=== PATIENT | female | born 1980 | race Caucasian/White ===

== ENCOUNTER → 2018-05-03 18:37 | Outpatient (CLI) | payer BC, SELFPAY | PROVIDERS: Visit Provider Nurse Practitioner Family | DX: J02.9 Acute pharyngitis, unspecified (principal) ==

== ENCOUNTER → 2019-02-14 12:56 | Outpatient (CLI) | payer BC, SELFPAY ==
--- NOTE | 2019-02-14 13:04 | US_ITS ---
PROCEDURE: US EXTREMITY RT LIMITED CLINICAL INDICATION: RT UPPER ARM MASS Palpable abnormality in the upper arm COMPARISON: No exams were available for comparison FINDINGS: Ultrasound performed of the arm demonstrates a subcutaneous ill-defined area of slight increased echogenicity measuring approximately 1 x 0.5 cm. This does not show increased blood flow and may represent a small lipoma IMPRESSION: Possible small lipoma corresponding to palpable abnormality in the arm Dictated by: Marin Perez MD 02/14/2019 13:42 Electronically signed by Marin Perez MD in [place] 02/14/2019 13:42
== END ==
PROVIDERS: PCP Physician Assistant; Visit Provider Physician Assistant
DX: R22.31 Localized swelling, mass and lump, right upper limb (principal)
CPT/HCPCS: 76882

== ENCOUNTER 2020-03-22 11:00 | Emergency (ER) | payer BC, SELFPAY ==
[2020-03-22 11:00] VITALS: BP 138/93; PULSE 89; RESP 13; TEMP 36.9; O2SAT 100; BMI 21.5
--- NOTE | 2020-03-22 11:06 | ECG_ITS ---
APPROVED REPORT Exam: Resting ECG HR:81 bpm ECG Measurements Heart Rate 81 AXES WI 146 P 63 QRSd 72 QRS -18 QT 388 T 25 QTc 450 Conclusion Normal sinus rhythm Left atrial abnormality Low voltage QRS Late r wave progression Abnormal ECG Electronically signed by : Sebas Miguel, 03/23/2020 19:21:28
--- NOTE | 2020-03-22 11:18 | XR_ITS ---
PROCEDURE: XR CHEST 2V CLINICAL HISTORY: soa COMPARISON: CR CXR CHEST(2 VIEWS-NOT PORTABLE) from 04/08/2016 FINDINGS: The cardiomediastinal silhouette and pulmonary vascularity are within normal limits. The lungs are clear without infiltrates, suspicious nodules, or pleural effusions. No acute bony abnormalities. IMPRESSION: No acute findings. Dictated by: Marin Perez MD 03/22/2020 11:45 Marin Perez MD in [place] 03/22/2020 11:45
--- NOTE | 2020-03-22 11:19 | HMH.EDGENADL ---
ED Disposition Clinical Impression: Dyspnea Qualifiers: Dyspnea type: unspecified Qualified Code(s): R06.00 - Dyspnea, unspecified Disposition: Home, Self-Care Condition on Discharge: Good Instructions: DI for Shortness of Breath Additional Instructions: Call back to the emergency department in 24-48 hrs to obtain your COVID-19 test result. Quarantine yourself until you obtain your result. Additional instructions for SHORTNESS OF BREATH: See your physician as soon as possible for further evaluation. Return immediately if worsening shortness of breath or if vomiting, chest pain, fever, coughing of blood, or passing out. Referrals: Orlando Hudson MD [Primary Care Provider] - - Critical Care Critical Care Time: No Attestation: On 03/22/20, the high probability of a clinically significant, sudden or life threatening deterioration of the following system(s) required my full and direct attention, intervention and personal management. The time I documented below is in addition to time spent performing reported procedures but includes the following listed in this critical care notation. Medical Decision Making - Felipe Inquiry Pt receiving controlled substance: No Vital Signs: 03/22/20 11:00 03/22/20 11:54 Temperature 98.4 F Temperature Source Oral Pulse Rate [Left Radial] 89 75 Respiratory Rate 13 Blood Pressure [Right Arm] 138/93 H 131/79 Blood Pressure Mean [Right Arm] 108 96 Blood Pressure Source [Right Arm] Automatic Cuff Automatic Cuff Blood Pressure Position [Right Arm] Sitting Sitting 02 Sat by Pulse Oximetry 100 98 Oxygen Delivery Method Room Air Room Air - Lab Data Lab Results 03/22/20 11:18: WBC 7.9, RBC 4.98, Hgb 15.5, Hct 45.5, MCV 91.3, MCH 31.1, MCHC 34.1, RDW 12.8, Plt Count 233, MPV 8.9, Neut % (Auto) 65.1, Lymph % (Auto) 25.5, [place] % (Auto) 6.3, Eos % (Auto) 2.5, Baso % (Auto) 0.6, Neut # (Auto) 5.1, Lymph # (Auto) 2.0, [place] # (Auto) 0.5, Eos # (Auto) 0.2, Baso # (Auto) 0.1 03/22/20 11:18: Sodium 138, Potassium 3.8, Chloride 104, Carbon Dioxide 25, Anion Gap 12.8, BUN 13, Creatinine 0.80, Estimated Creat Clear 81, Estimated GFR 80, Est GFR ( Amer) 97, Glucose 105 H, Calcium 9.5, Total Bilirubin 1.1, AST 28, ALT 13, Alkaline Phosphatase 64, Troponin I < 0.01, Total Protein 8.3 H, Albumin 4.8, Globulin 3.5 H, Albumin/Globulin Ratio 1.4 03/22/20 11:18: D-Dimer 0.64 Result diagrams: 03/22/20 11:18 03/22/20 11:18 Orders (Tests/Meds): ORDERS Category Date Time Status Troponin I Q3H Lab 03/22/20 14:30 Ordered Troponin I Q3H Lab 03/22/20 17:30 Ordered - Radiology Data #1 Image(s): Chest Image Reviewed: Yes I reviewed the patient's radiology image, Yes I have reviewed radiologist's interpretation Preliminary Findings: Normal/NAD - ECG Data Tracing #1 EKG interpreted by Wilfrido García MD: Rhythm: sinus Rate: 81 [place]: Left Ectopy: none Conduction: normal ST Segment Changes: none T Wave Changes: none Q Waves: none Poor R wave progression No prior EKGs available for comparison. Medical Decision Narrative: PULMONARY EMBOLISM RULE-OUT CRITERIA: 1. Age > 49? No 2. Pulse greater than 99/min? No 3. Room air pulse ox <95%? No 4. Hemoptysis? No 5. On estrogen? No 6. Prior diagnosis of DVT or PE? No 7. Surgery or trauma requiring endotracheal intubation or hospitalization in past 4 wks? No 8. Unilateral leg swelling? No The patient is low risk and the PERC score is 0, however given her shortness of breath and pleuritic chest pain a D-dimer was also ordered. 12:13 PM: Discussed results. Work-up negative. Patient would also like to be tested for Covid. General Adult HPI - General Chief complaint: Shortness of Breath/Dyspnea Stated complaint: SOA Time Seen by Provider: 03/22/20 11:19 Mode of Arrival: Ambulatory Limitations: No Limitations Description of Symptoms (Recalled from ER Triage Doc. by RN): Pt states that last night she
--- NOTE | 2020-03-22 11:27 | PC.NURSE ---
Pt taken to xray
--- NOTE | 2020-03-22 11:29 | PC.NURSE ---
Pt back from xray
[2020-03-22 11:43] LABS: Chloride 104 mmol/L (98-107); Sodium 138 mmol/L (136-145)
[2020-03-22 11:44] LABS: Potassium 3.8 mmoL/L (3.5-5.1)
[2020-03-22 11:46] LABS: Alanine Aminotransferase 13 U/L (12-78); Albumin Level 4.8 g/dl (3.5-5.0); Albumin/Globulin Ratio 1.4 (1.1-1.8); Alkaline Phosphatase 64 U/L (38-126); Anion Gap 12.8 mEq/L (5-15); Aspartate Amino Transferase 28 U/L (14-36); Bilirubin,Total 1.1 mg/dl (0.2-1.3); Blood Urea Nitrogen 13 mg/dl (7-17); Calcium 9.5 mg/dl (8.4-10.2); Carbon Dioxide 25 mmol/L (22.0-30.0); Creatinine Clearance Estimated 81 mL/min (50-200); Estimated Glomerular Filt Rate 80 ml/min (>60); GFR (African American) 97 ML/MIN (>60); Globulin 3.5 g/dL (1.3-3.2); Glucose 105 mg/dl (74-100); Total Protein,Serum 8.3 g/dl (6.3-8.2)
[2020-03-22 11:48] LABS: Basophils # 0.1 K/mm3 (0-0.2); Basophils % 0.6 % (0.1-2.0); Eosinophils # 0.2 K/mm3 (0.0-0.4); Eosinophils % 2.5 % (0.1-12.0); Hematocrit 45.5 % (37.0-47.0); Hemoglobin 15.5 g/dL (12.2-16.2); Lymphocytes % 25.5 % (10-50); Mean Corpuscular HGB Conc 34.1 g/dL (31.8-35.4); Mean Corpuscular Hemoglobin 31.1 pg (27.0-31.2); Mean Corpuscular Volume 91.3 fl (81-99); Mean Platelet Volume 8.9 fl (7.4-10.4); Monocytes # 0.5 K/mm3 (0.1-1.0); Monocytes % 6.3 % (1.7-9.3); Neutrophils # 5.1 K/mm3 (1.8-7.8); Neutrophils % 65.1 % (37.0-80.0); Platelet Count 233 K/mm3 (142-424); Red Blood Count 4.98 M/mm3 (4.20-5.40); Red Cell Distribution Width 12.8 % (11.5-17.5); White Blood Count 7.9 K/mm3 (4.8-10.8)
[2020-03-22 11:51] LABS: D-Dimer 0.64 ug/mL (0.15-8.0)
[2020-03-22 11:54] VITALS: BP 131/79; PULSE 75; O2SAT 98
[2020-03-22 12:06] LABS: Troponin I < 0.01 ng/ml (0.00-0.034)
[2020-03-22 12:33] VITALS: BP 131/84; PULSE 69; RESP 14; TEMP 36.9; O2SAT 99
== END 2020-03-22 12:34 | disposition home or self-care (01) ==
PROVIDERS: Emergency Provider Emergency Medicine; PCP Family Medicine
DX: R06.00 Dyspnea, unspecified (principal); R42 Dizziness and giddiness; F17.210 Nicotine dependence, cigarettes, uncomplicated; Z88.8 Allergy status to other drugs, medicaments and biological substances; Z20.828 Contact with and (suspected) exposure to other viral communicable diseases
CPT/HCPCS: 71046; 80053; 84484; 85025; 85378; 93005; 99283; U0003

== ENCOUNTER → 2020-05-12 09:15 | Outpatient (CLI) | payer BC, SELFPAY | PROVIDERS: PCP Family Medicine; Visit Provider Physician Assistant | DX: Z11.52 Encounter for screening for COVID-19 (principal) | CPT/HCPCS: U0003 ==

== ENCOUNTER 2021-03-26 10:08 | Emergency (ER) | payer BC, SELFPAY ==
[2021-03-26 11:19] VITALS: BP 141/86; PULSE 85; RESP 18; TEMP 36.7; O2SAT 99; BMI 22.3
--- NOTE | 2021-03-26 11:35 | HMH.EDUTC ---
[facility] – [place] Disposition Clinical Impression: Nasal congestion Disposition: Home, Self-Care Condition on Discharge: Good Instructions: DI for Nasal Congestion, Methylprednisolone, Fluticasone Nasal [place] Additional Instructions: *Monitor Temp, Over the counter Motrin or Tylenol as directed/as needed Tylenol every 4 hours and Motrin every 6 hours (as long as your family doctor has told you that you can take it) for fever or pain. and straight to ER if unable to lower temp less than 101.0 after medication given *Warm salt water gargles may help to soothe the throat *Throat Lozenges *Warm fluids like tea with honey may help to soothe the throat *Sleep elevated *Humidifier/Vaporizer *Flonase 2 sprays in each nostril daily but be aware that it may take 2-3 days before you notice improvement Follow up IMMEDIATELY for new or worsening symptoms or no Noticeable improvement over the next 48-72 hours. 911 for difficulty breathing or swallowing You were tested for today for COVID19 your test result should be back in the next 24-48 hours, you may call to the [facility] to see if your test results are back in the next 48 hours [phone] [facility] hours are 9am-9pm You was given a handout with instructions for Self Quarantine and Self isolation for while you wait on test results and what to do if they are positive If you are positive the Health Dept will be contacting you also Make sure to take your Vitamins Vit. C Vit D and Zinc if you can take them Prescriptions: Fluticasone Propionate [Flonase 50mcg nasal spray 16gm] 1 spr NS DAILY #1 each Transmission Status: Pending to [facility] methylPREDNISolone [Medrol 4mg tab] 4 mg PO DIRECTED #21 tab Transmission Status: Pending to [facility] Referrals: Orlando Hudson MD [Primary Care Provider] - As needed Forms: Work/School Release Time of Disposition: 11:48 Medical Decision Making - Felipe Inquiry Pt receiving controlled substance: No Felipe was queried for this patient: No Vital Signs: 03/26/21 11:19 Temperature 98.1 F Temperature Source Oral Pulse Rate [Left] 85 Respiratory Rate 18 Blood Pressure [Right Arm] 141/86 H Blood Pressure Mean [Right Arm] 104 02 Sat by Pulse Oximetry 99 Orders (Tests/Meds): ORDERS Category Date Time Status Covid-19 Nasal PCR ([facility]) Routine Lab 03/26/21 11:14 Received [facility] [place] HPI - General Stated complaint: congestion, body aches, weakness Time Seen by Provider: 03/26/21 11:35 Mode of Arrival: Ambulatory Source of Information: Patient Limitations: No Limitations Description of Symptoms (Recalled from Triage Doc. by RN): pt c/o sinus congestion, body aches and ears aching. pt states it all came on suddenly. HEENT Symptoms (Recalled from RN notes): Yes (sinus congestion and ears ache) Resp Symptoms (Recalled from RN notes): No Skin Symptoms (Recalled from RN notes): No MS Symptoms (Recalled from RN notes): No Functional Status (Recalled from RN notes): wnl - History of Present Illness Provider Complaint: Patient states that she woke up yesterday having sinus congestion feeling of fullness in her ears and body aches and feeling achy and tired States that she took her booster shot last week States that today she was still feeling bad so she came in to get tested for COVID - Related Data Home Medications Medication Instructions Recorded Confirmed Fluticasone Propionate [Flonase 2 spray INTRANASAL DAILY 03/22/20 03/22/20 Allergy Relief NS] Previous Rx's Medication Instructions Recorded Fluticasone Propionate [Flonase 1 spr NS DAILY #1 each 03/26/21 50mcg nasal spray 16gm] methylPREDNISolone [Medrol 4mg 4 mg PO DIRECTED #21 tab 03/26/21 tab] Allergies Allergy/AdvReac Type Severity Reaction Status Date / Time Butorphanol Allergy Unknown Uncoded 05/03/18 12:25 From Codeine Sulfate Allergy Unknown Uncoded 05/03/18 12:25 Hydrocodone Allergy Unknown Uncoded 05/03/18 12:25 Metoclopramide Allergy Unkno
[2021-03-26 11:55] VITALS: BP 141/86; PULSE 85; RESP 18; TEMP 36.7
== END 2021-03-26 11:56 | disposition home or self-care (01) ==
PROVIDERS: Emergency Provider Nurse Practitioner; PCP Family Medicine
DX: U07.1 COVID-19 (principal); F17.210 Nicotine dependence, cigarettes, uncomplicated
CPT/HCPCS: 99202; C9803; G0463; U0003; U0005

== ENCOUNTER 2021-08-19 14:52 | Emergency (ER) | payer BC, SELFPAY ==
[2021-08-19 15:22] VITALS: BP 131/88; PULSE 92; RESP 18; TEMP 36.9; O2SAT 99; BMI 21.9
--- NOTE | 2021-08-19 15:26 | HMH.EDUTC ---
[facility] [place] Clinical Impression: Viral syndrome Disposition: Home, Self-Care Condition on Discharge: Good Instructions: DI for Viral Syndrome Additional Instructions: Drink plenty of fluids. Take tylenol or ibuprofen for pain or fever. Take the medications as directed. Follow up with your regular doctor. GO TO THE ER FOR ANY WORSENING SYMPTOMS Take the zofran for nausea. Prescriptions: Ondansetron [Zofran 4mg ODT] 4 mg PO Q8HP PRN #20 tab PRN Reason: Nausea Transmission Status: Pending to [facility] Referrals: Nayely Delgado PA [Primary Care Provider] - Forms: Work/School Release Time of Disposition: 16:24 Medical Decision Making - Medical Records Medical records reviewed: No: I reviewed the patient's medical records. - Felipe Inquiry Pt receiving controlled substance: No Vital Signs: 08/19/21 15:22 Temperature 98.4 F Temperature Source Oral Pulse Rate [Left] 92 H Respiratory Rate 18 Blood Pressure [Right Arm] 131/88 Blood Pressure Mean [Right Arm] 102 02 Sat by Pulse Oximetry 99 - Lab Data Lab results reviewed: Yes: I reviewed the patient's lab results. Lab Results 08/19/21 15:21: Urine Color Yellow, Urine Appearance Clear, Urine pH 5.5, Ur Specific [place] 1.020, Urine Protein Negative, Urine Glucose (UA) Negative, Urine Ketones Negative, Urine Blood Negative, Urine Nitrate Negative, Urine Bilirubin Negative, Urine Urobilinogen 0.2, Ur Leukocyte Esterase Negative 08/19/21 15:22: Group A Strep Rapid Negative Orders (Tests/Meds): ORDERS Category Date Time Status Full Resp Panel w/COVID ([facility]) Routine Lab 08/19/21 16:20 Ordered Strep Screen Confirmation Stat Micro 08/19/21 15:22 Received [facility] [place] HPI - General Stated complaint: nausea, chills, bodyaches Time Seen by Provider: 08/19/21 15:26 - History of Present Illness Provider Complaint: She states that she has had n/v off and on for the past 2 weeks. She had diarrhea at first, but that has stopped. She denies abdominal pain but she has had some abdominal tenderness. She does not have her appendix or gall bladder still. - Related Data Home Medications Medication Instructions Recorded Confirmed Fluticasone Propionate [Flonase 2 spray INTRANASAL DAILY 03/22/20 03/22/20 Allergy Relief NS] Previous Rx's Medication Instructions Recorded Fluticasone Propionate [Flonase 1 spr NS DAILY #1 each 03/26/21 50mcg nasal spray 16gm] methylPREDNISolone [Medrol 4mg 4 mg PO DIRECTED #21 tab 03/26/21 tab] Ondansetron [Zofran 4mg ODT] 4 mg PO Q8HP PRN #20 tab 08/19/21 Allergies Allergy/AdvReac Type Severity Reaction Status Date / Time amoxicillin [From Augmentin] Allergy Verified 08/19/21 15:45 butorphanol [From Stadol] Allergy Verified 08/19/21 15:45 clavulanic acid Allergy Verified 08/19/21 15:45 [From Augmentin] metronidazole [From Flagyl] Allergy Verified 08/19/21 15:45 Butorphanol Allergy Unknown Uncoded 05/03/18 12:25 From Codeine Sulfate Allergy Unknown Uncoded 05/03/18 12:25 Hydrocodone Allergy Unknown Uncoded 05/03/18 12:25 Metoclopramide Allergy Unknown Uncoded 05/03/18 12:25 [facility] History - Hepatitis A Screen Attestation statement:: This patient has been screened for Hepatitis A risk factors. I have reviewed the patient's past medical history: Yes Medical History: Denies:: Diabetes Mellitus Type 1, Diabetes Mellitus Type 2 Other Surgeries: Yes: Appendectomy, Cholecystectomy, Diagnostic Lap Amputation: No Fractures: No - Social History Smoking Status: Current every day smoker Tobacco Type: cigarettes # Packs/Day (cigarettes): 1 #Yrs smoked (if former smoker): 15 Alcohol Intake: never Alcohol Intake Frequency:: a few times a month Substance Use Type: denies use Occupational Status: employed ROS Obtained: Yes All systems reviewed & no additional complaints - Constitutional Constitutional: Reports as per HPI, Kelly bautistasSom
[2021-08-19 15:32] LABS: Apearance,Urine Clear (Clear); Color,Urine Yellow (Yellow)
[2021-08-19 15:33] LABS: Bilirubin,Urine Negative (Negative); Blood, Urine Negative (Negative); Glucose,Urine (UA) Negative (Negative); Ketones,Urine Negative (Negative); PH,Urine 5.5 (5.0-8.5); Protein,Urine Negative (Negative); UTC Leukocyte Esterase,Urine Negative (Negative); UTC Nitrate,Urine Negative (Negative); Urobilinogen,Urine 0.2 EU/dl (0.2)
[2021-08-19 15:45] LABS: Strep Scrn Group A (Rapid) Negative (Negative)
[2021-08-19 16:30] LABS: Adenovirus,PCR Not Detected (NotDetected); Bordetella Pertussis Not Detected (NotDetected); Chlamydophila Pneumoniae, PCR Not Detected (NotDetected); Coronavirus 19, PCR Not Detected (NotDetected); Coronavirus 229E Not Detected (NotDetected); Coronavirus NL63 Not Detected (NotDetected); Coronavirus OC43 Not Detected (NotDetected); Coronovirus HKU1,PCR Not Detected (NotDetected); Human Metapneumovirus Not Detected (NotDetected); Influenza A, PCR Not Detected (NotDetected); Influenza AH1, 2009 Not Detected (NotDetected); Influenza AH1, PCR Not Detected (NotDetected); Influenza AH3,PCR Not Detected (NotDetected); Influenza B, PCR Not Detected (NotDetected); Mycoplasma Pneumoniae, PCR Not Detected (NotDetected); Parainfluenza 1, PCR Not Detected (NotDetected); Parainfluenza 2, PCR Not Detected (NotDetected); Parainfluenza 3, PCR Not Detected (NotDetected); Parainfluenza 4, PCR Not Detected (NotDetected); Respiratory Syncytial Virus Not Detected (NotDetected); Rhinovirus/Enterovirus Not Detected (NotDetected)
[2021-08-19 16:43] VITALS: BP 131/88; PULSE 92; RESP 18; TEMP 36.9
[2021-08-19 19:40] LABS: UTC Influenza A Antigen Negative (Negative); UTC Influenza B Antigen Negative (Negative)
== END 2021-08-19 16:44 | disposition home or self-care (01) ==
PROVIDERS: Emergency Provider Nurse Practitioner Family; PCP Physician Assistant
DX: B34.9 Viral infection, unspecified (principal); F17.210 Nicotine dependence, cigarettes, uncomplicated; Z20.822 Contact with and (suspected) exposure to COVID-19; Z79.51 Long term (current) use of inhaled steroids; Z79.52 Long term (current) use of systemic steroids; Z79.899 Other long term (current) drug therapy; Z88.0 Allergy status to penicillin; Z88.1 Allergy status to other antibiotic agents; Z88.3 Allergy status to other anti-infective agents; Z88.5 Allergy status to narcotic agent; Z88.6 Allergy status to analgesic agent; Z88.8 Allergy status to other drugs, medicaments and biological substances
CPT/HCPCS: 81003; 87430; 87581; 87632; 87798; 87804; 99213; C9803; G0463; U0003; U0005

== ENCOUNTER → 2022-01-20 12:21 | Outpatient (CLI) | payer BC, SELFPAY ==
[2022-01-20 13:15] LABS: Basophils # 0.1 K/mm3 (0-0.2); Basophils % 1.2 % (0.1-2.0); Eosinophils # 0.2 K/mm3 (0.0-0.4); Eosinophils % 3.9 % (0.1-12.0); Hematocrit 39.9 % (37.0-47.0); Hemoglobin 13.6 g/dL (12.2-16.2); Lymphocytes # 0.5 K/mm3 (0.7-4.5); Lymphocytes % 8.2 % (10-50); Mean Corpuscular HGB Conc 34.1 g/dL (31.8-35.4); Mean Corpuscular Hemoglobin 31.8 pg (27.0-31.2); Mean Corpuscular Volume 93.4 fl (81-99); Mean Platelet Volume 9.3 fl (7.4-10.4); Monocytes # 0.4 K/mm3 (0.1-1.0); Monocytes % 7.3 % (1.7-9.3); Neutrophils # 4.8 K/mm3 (1.8-7.8); Neutrophils % 79.3 % (37.0-80.0); Platelet Count 200 K/mm3 (142-424); Red Blood Count 4.27 M/mm3 (4.20-5.40); Red Cell Distribution Width 12.5 % (11.5-17.5); White Blood Count 6.1 K/mm3 (4.8-10.8)
[2022-01-20 13:19] LABS: Strep Scrn Group A (Rapid) Negative (Negative)
== END ==
PROVIDERS: PCP Family Medicine; Visit Provider Nurse Practitioner Family
DX: U07.1 COVID-19 (principal)
CPT/HCPCS: 36415; 85025; 87275; 87276; 87430; C9803; U0003; U0005

== ENCOUNTER 2024-04-23 10:18 | Emergency (ER) | payer BC, SELFPAY ==
[2024-04-23 12:09] VITALS: BP 135/75; PULSE 74; RESP 20; TEMP 36.8; O2SAT 100; BMI 23.6
--- NOTE | 2024-04-23 12:10 | EXP.UTC ---
Discharge Plan Disposition Patient Disposition: Home, Self-Care Condition: Good Prescriptions Prescriptions: New oseltamivir [Tamiflu] 75 mg capsule 75 mg PO BID 5 Days Qty: 10 0RF No Action fluticasone propionate 9.9 ML spray,suspension 2 spray INTRANASAL DAILY Rx Instructions: administer into each nostril methylprednisolone 4 MG tablet 4 mg PO DIRECTED Qty: 21 0RF Rx Instructions: Take as directed on package instructions fluticasone propionate 120 SPR/BOT bottle 1 spr NS DAILY Qty: 1 0RF Rx Instructions: one spray in each nostril daily ondansetron 4 MG tablet,disintegrating 4 mg PO Q8HP PRN (Reason: Nausea) Qty: 20 0RF Referrals Follow up/Referrals: Orlando Hudson MD [Primary Care Provider] - See instructions Activity Restrictions/Add. Instructions Additional Instructions/Restrictions: No sign of a bacterial infection. Likely viral. Viruses can take 7-14 days to run their course. Nasal saline and bulb syringe or nose Rylie to remove nasal drainage to help with nasal congestion. Hard to eat, drink, sleep with nasal congestion so important to keep this cleaned out. Monitor temp. Tylenol or Motrin as needed for pain or fever Encourage fluids, water, Gatorade, Powerade, Pedialyte if /toddler/child Warm salt water gargles Warm fluids Sore throat lozenges Sleep elevated Humidifier/vaporizer Follow-up immediately for new or worsening symptoms or no noticeable improvement over the next 48-72 hours. Clinical Impressions Clinical Impression: Upper respiratory infection, viral, Exposure to influenza Instructions Patient Instructions: DI for Viral Upper Respiratory Infection -- Adult Print Language Print Language: Tanzanian Discharge ED Provider: Earlene ([facility])Aida [facility] [place] HPI General Stated complaint: fever, cough, H/A, B/A, chills Mode of Arrival: Ambulatory Source of Information: Patient Limitations: No Limitations Time Seen by Provider: 04/23/24 12:00 Description of Symptoms (Recalled from Triage Doc. by RN): PATIENT C/O FEVER, CHILLS AND BODY ACHES SINCE LAST NIGHT HEENT Symptoms (Recalled from RN notes): No Resp Symptoms (Recalled from RN notes): No Skin Symptoms (Recalled from RN notes): No MS Symptoms (Recalled from RN notes): No Functional Status (Recalled from RN notes): WNL History of Present Illness Provider Complaint: 43-year-old female presents for complaints of fever, chills and bodyaches since last night. Close exposure to influenza A. Related Data Home Medications ?Medication ?Instructions ?Recorded ?Confirmed fluticasone propionate 50 2 spray intranasal DAILY allergies 03/22/20 03/22/20 mcg/actuation nasal spray,suspension Previous Rx's ?Medication ?Instructions ?Recorded fluticasone propionate 50 1 spr NS DAILY #1 ea 03/26/21 mcg/actuation nasal spray,suspension methylprednisolone 4 mg tablet 4 mg PO DIRECTED #21 tabs 03/26/21 ondansetron 4 mg disintegrating 4 mg PO Q8HP PRN Nausea #20 tabs 08/19/21 tablet oseltamivir 75 mg capsule (Tamiflu) 75 mg PO BID 5 days #10 caps 04/23/24 Allergies Allergy/AdvReac Type Severity Reaction Status Date / Time amoxicillin (From Augmentin) Allergy Verified 08/19/21 15:45 butorphanol (From Stadol) Allergy Verified 08/19/21 15:45 clavulanic acid (From Allergy Verified 08/19/21 15:45 Augmentin) metronidazole (From Flagyl) Allergy Verified 08/19/21 15:45 Butorphanol Allergy Unknown Uncoded 05/03/18 12:25 From Codeine Sulfate Allergy Unknown Uncoded 05/03/18 12:25 Hydrocodone Allergy Unknown Uncoded 05/03/18 12:25 Metoclopramide Allergy Unknown Uncoded 05/03/18 12:25 Worker's Comp Is this a Worker's Comp case?: No [facility] Disclaimer: The information contained in this section may have been updated after the patient was seen, as this information can be updated by other users. Social History , [employer]) Smoking Status: Current every day smoker tobacco type: cigarettes packs per day: 1 alcohol intake: never substance use type: denies use current occupational status: employed Travel in the last 8 weeks: None Have you lived/traveled outside [place] in past 30 days?: No Contact w/someone who lives/traveled outside US past 30 days?: No Exposure to someone with infectious disease in past 14 days?: No Do you have a fever (greater than 100.4 F or 38 C)?: Yes Have you tested positive for COVID-19: No Exposed to someone with COVID-19 in past 14 days?: No Do you have a sore throat?: No Do you have a cough?: Yes Do you have any weakness?: Yes Do you have any diarrhea?: No Are you experiencing any unusual bleeding?: No Do you have any muscle aches/pain?: Yes Do you have any abdominal pain?: No Are you experiencing loss of taste or smell?: No ROS Obtained: Yes Systems reviewed as appropriate & no additional complaints except as documented Physical Exam General General appearance: alert and in no apparent distress ENT ENT exam: Present normal exam, normal oropharynx, mucous membranes moist and TM's normal bilaterally Respiratory Respiratory exam: Present normal lung sounds bilaterally Cardiovascular Cardiovascular exam: Present regular rate and normal rhythm Abdominal Exam Abdominal exam: Present soft Neurological Exam Neurological exam: Present alert and oriented X3 Skin Skin exam: Present warm and intact Medical Decision Making Medical Records Medical records reviewed: Yes I reviewed the patient's medical records. Screening: Per USPSTF and CDC recommendations, given the prevalence of disease in our region, it is our hospital?s policy to screen for HIV and viral Hepatitis for all patients aged 18 and over and those with ongoing risk factors. Felipe Inquiry Pt receiving controlled substance: No Felipe was queried for this patient: No Vital Signs: 04/23/24 12:09 Temperature 98.2 F Temperature Source Oral Pulse Rate [Left Brachial] 74 Respiratory Rate 20 Blood Pressure [Left Arm] 135/75 Blood Pressure Mean [Left Arm] 95 Blood Pressure Source [Left Arm] Automatic Cuff Blood Pressure Position [Left Arm] Sitting 02 Sat by Pulse Oximetry 100 Oxygen Delivery Method Room Air Lab Data Lab results reviewed: Yes I reviewed the patient's lab results.
[2024-04-23 12:15] VITALS: BP 135/75; PULSE 74; RESP 20; TEMP 36.8; O2SAT 100
[2024-04-23 12:17] LABS: UTC Influenza A Antigen Negative (Negative); UTC Influenza B Antigen Negative (Negative)
== END 2024-04-23 12:19 | disposition home or self-care (01) ==
PROVIDERS: Emergency Provider Nurse Practitioner Family; PCP Family Medicine
DX: J06.9 Acute upper respiratory infection, unspecified (principal)
CPT/HCPCS: 87804; 99213; G0381